=== PATIENT | male | born 1960 | race Caucasian/White ===

== ENCOUNTER 2021-04-22 22:40 | Emergency (ER) | payer OTHER ==
[~2021-04-22] VITALS: Ht 185.4 cm; Wt 74.8 kg
--- NOTE | 2021-04-22 22:53 | NUR ---
Dr Parker into eval patient with [employer] at bedside.
[2021-04-22] MEDS ORDERED: IBUPROFEN 600 MG TABLET PO ONE (23:00)
[2021-04-22] MEDS ORDERED: IBUPROFEN 600 MG TABLET ONE (23:08)
--- NOTE | 2021-04-22 23:19 | NUR ---
Patient medically cleared by Dr. Parker for booking to half-way. Patient released to police custody to [facility] officer Roman #[id number].
[2021-04-22 23:20] VITALS: BP 121/87
== END 2021-04-22 23:20 ==
LOC: ER 22:52
DX: G89.29 Other chronic pain (principal); M54.9 Dorsalgia, unspecified; R00.0 Tachycardia, unspecified; R05.9 Cough, unspecified; Z20.822 Contact with and (suspected) exposure to COVID-19; F17.210 Nicotine dependence, cigarettes, uncomplicated; Z59.02 Unsheltered homelessness
CPT/HCPCS: 93005; A4663